=== PATIENT | female | born 1970 | race Caucasian/White ===

== ENCOUNTER → 2024-07-23 12:01 | Outpatient (REF) | payer OTHER, SELFPAY | LOC: MRI 3T 12:01 | PROVIDERS: ATTENDING PHYSICIAN Physician Assistant Medical | DX: Z87.820 Personal history of traumatic brain injury (principal); G44.309 Post-traumatic headache, unspecified, not intractable | CPT/HCPCS: 70544 ==

== ENCOUNTER 2024-09-22 06:24 | Day surgery (SDC) | payer OTHER, SELFPAY | END 2024-09-22 14:08 | disposition home or self-care (01) | LOC: GI 06:24 | PROVIDERS: ATTENDING PHYSICIAN Internal Medicine | DX: Z12.11 Encounter for screening for malignant neoplasm of colon (principal); K57.30 Diverticulosis of large intestine without perforation or abscess without bleeding; D12.3 Benign neoplasm of transverse colon; D12.5 Benign neoplasm of sigmoid colon; K62.1 Rectal polyp | CPT/HCPCS: 45385; 45380; 88305 ==